=== PATIENT | female | born 1990 | race Caucasian/White ===

== ENCOUNTER 2020-12-21 10:33 | Observation (INO) | payer OTHER, SELFPAY ==
[~2020-12-21] VITALS: Ht 160 cm; Wt 90.7 kg
[~2020-12-21 10:33] MED LIST: OMEP20EC9 PO; PREN-385 PO
[2020-12-21 13:00] VITALS: BP 114/65
[2020-12-21] MEDS ORDERED: BETAMETH ACET/BETAMETH NA PH 30 MG/5 ML VIAL IM SCH ×2 (13:25→13:28)
--- NOTE | 2020-12-22 06:54 | NUR ---
PATIENT HAS BEEN SCREENED AND CATEGORIZED LOW NUTRITION RISK. PATIENT WILL BE SEEN WITHIN 7 DAYS OF ADMISSION. 12/28/20 KATTY MORRIS MS, RDN
[2020-12-22] MEDS ORDERED: BETAMETH ACET/BETAMETH NA PH 30 MG/5 ML VIAL IM ONE (13:10)
== END 2020-12-22 14:00 | disposition home or self-care (01) ==
LOC: MLD 10:33
PROVIDERS: ADMIT Obstetrics & Gynecology; ATTEND Obstetrics & Gynecology
DX: O46.93 Antepartum hemorrhage, unspecified, third trimester (principal); Z20.822 Contact with and (suspected) exposure to COVID-19; Z3A.34 34 weeks gestation of pregnancy
CPT/HCPCS: 59025; 76805; 76817; 81000; 87426; 96372; G0378; J0702; Q0092

== ENCOUNTER 2021-01-10 09:01 | Inpatient (IN) | payer OTHER, SELFPAY ==
[~2021-01-10] VITALS: Ht 160 cm; Wt 91.2 kg
[2021-01-10] MEDS ORDERED: LACTATED RINGERS 1,000 ML IV SCH (09:45)
[2021-01-10] MEDS ORDERED: CITRIC ACID/SODIUM CITRATE 30 ML UDC PO SCH (09:45)
[2021-01-10] MEDS ORDERED: ONDANSETRON 4 MG/2 ML VIAL IVP PRN ×2 (09:55→12:05)
[2021-01-10] MEDS ORDERED: MORPHINE SULFATE 10 MG/ML VIAL IVP PRN (10:05)
[2021-01-10 10:31] LABS: BILIRUBIN,URINE NEGATIVE (NEGATIVE); BLOOD, URINE 3+ (NEGATIVE); COLOR,URINE YELLOW (YELLOW); LEUKOCYTE ESTERASE ,URINE TRACE (NEGATIVE); NITRITE, URINE NEGATIVE (NEGATIVE); UGLUCOSE NEGATIVE (NEGATIVE)
[2021-01-10] MEDS ORDERED: MORPHINE PRES FREE 10 MG/10 ML AMP IV ONE (10:38)
[2021-01-10] MEDS ORDERED: MIDAZOLAM 2 MG/2 ML VIAL ONE (10:38)
[2021-01-10 10:41] LABS: APPEARANCE,URINE HAZY (CLEAR)
[2021-01-10 10:43] LABS: WBC,URINE 0-5 /HPF (0-5)
[2021-01-10 10:45] LABS: RBC,URINE 50-80 /HPF (0-5)
[2021-01-10 10:49] LABS: ALBUMIN 2.2 g/dL (3.4-5.0); ANION GAP 15.6 (8-16); CARBON DIOXIDE 21.2 mmol/L (21-32); CREATININE 0.6 mg/dL (0.6-1.3); POTASSIUM 3.8 mmol/L (3.5-5.1); TOTAL BILIRUBIN 0.2 mg/dL (0.0-1.0)
[2021-01-10 10:52] LABS: BASOPHILS # (AUTO) 0.1 K/uL (0.00-0.22); BASOPHILS % (AUTO) 0.6 % (0.0-2.0); EOSINOPHILS % (AUTO) 0.4 % (0.0-4.0); HEMATOCRIT 40.2 % (36-48); HEMOGLOBIN 13.5 g/dL (12.0-16.0); LYMPHOCYTES # (AUTO) 1.8 K/uL (2.5-16.5); LYMPHOCYTES % (AUTO) 20.5 % (20.5-51.1); MEAN CORPUSCULAR HEMOGLOBIN 30 pg (27-31); MEAN CORPUSCULAR HGB CONC 34 g/dL (33-37); MEAN CORPUSCULAR VOLUME 88.7 fL (80-94); MONOCYTES # (AUTO) 0.4 K/uL (0.8-1.0); MONOCYTES % (AUTO) 4.7 % (1.7-9.3); NEUTROPHILS # (AUTO) 6.5 K/uL (1.8-7.7); NEUTROPHILS % (AUTO) 73.8 % (42.2-75.2); PLATELET COUNT (AUTO) 245 K/uL (140-450); RED BLOOD CELL COUNT(AUTO) 4.53 MIL/uL (4.20-5.40); WHITE BLOOD COUNT (AUTO) 8.8 K/uL (4.8-10.8)
[2021-01-10 11:01] VITALS: BP 125/74
[2021-01-10] MEDS ORDERED: METOCLOPRAMIDE 10 MG/2 ML INJ VIAL ONE (11:30)
[2021-01-10] MEDS ORDERED: diphenhydrAMINE 50 MG/ML VIAL IVP PRN (12:05)
[2021-01-10] MEDS ORDERED: OXYTOCIN 20 UNITS in LACTATED RINGERS 1,000 ML IV SCH (12:05)
[2021-01-10] MEDS ORDERED: NALOXONE 0.4 MG/ML VIAL IVP PRN ×3 (12:05)
[2021-01-10] MEDS ORDERED: NALBUPHINE 10 MG/ML AMP IVP PRN (12:05)
[2021-01-10] MEDS ORDERED: HYDROmorphone 1 MG/ML AMP IVP PRN (12:05)
[2021-01-10] MEDS ORDERED: MEPERIDINE 25 MG/ML SYR IVP PRN (12:05)
[2021-01-10] MEDS ORDERED: MEASLES, MUMPS, AND RUBELLA 1 VIAL SQVAC ONE (13:15)
[2021-01-10] MEDS ORDERED: PROMETHAZINE 25 MG/ML VIAL IVP PRN (13:15)
[2021-01-10] MEDS ORDERED: METHYLERGONOVINE 0.2 MG/ML AMP IM PRN (13:15)
[2021-01-10] MEDS: ONDANSETRON 4 MG/2 ML VIAL IVP PRN ×2 (16:15→20:32)
[2021-01-10] MEDS: OXYTOCIN 20 UNITS in LACTATED RINGERS 1,000 ML IV SCH (16:16)
[2021-01-10] MEDS: KETOROLAC 30 MG/ML VIAL IM/IVP SCH (19:36)
[2021-01-10] MEDS: diphenhydrAMINE 50 MG/ML VIAL IVP PRN (19:39)
[2021-01-11] MEDS: diphenhydrAMINE 50 MG/ML VIAL IVP PRN (00:12)
[2021-01-11] MEDS ORDERED: OXYTOCIN 20 UNITS/LR PREMIX 1,000 ML IV ONE (00:23)
[2021-01-11] MEDS: OXYTOCIN 20 UNITS in LACTATED RINGERS 1,000 ML IV SCH (00:43)
[2021-01-11] MEDS: KETOROLAC 30 MG/ML VIAL IM/IVP SCH (01:37)
[2021-01-11 05:27] LABS: BASOPHILS % (AUTO) 0.4 % (0.0-2.0); EOSINOPHILS % (AUTO) 0.5 % (0.0-4.0); HEMATOCRIT 29.6 % (36-48); LYMPHOCYTES # (AUTO) 1.8 K/uL (2.5-16.5); MEAN CORPUSCULAR HEMOGLOBIN 30 pg (27-31); MEAN CORPUSCULAR HGB CONC 34 g/dL (33-37); MEAN CORPUSCULAR VOLUME 88.7 fL (80-94); MONOCYTES # (AUTO) 0.4 K/uL (0.8-1.0); MONOCYTES % (AUTO) 4.8 % (1.7-9.3); NEUTROPHILS # (AUTO) 5.7 K/uL (1.8-7.7); NEUTROPHILS % (AUTO) 71.3 % (42.2-75.2); PLATELET COUNT (AUTO) 190 K/uL (140-450); RED BLOOD CELL COUNT(AUTO) 3.33 MIL/uL (4.20-5.40); RED CELL DISTRIBUTION WIDTH 16.8 % (11.6-13.7)
[2021-01-11] MEDS ORDERED: bisacodyL 10 MG SUPP RC SCH (09:00)
--- NOTE | 2021-01-11 09:27 | NUR ---
PATIENT HAS BEEN SCREENED AND CATEGORIZED LOW NUTRITION RISK. PATIENT WILL BE SEEN WITHIN 7 DAYS OF ADMISSION. 01/16/21 REVIEWED BY DANNY MCWILLIAMS RD
[2021-01-11] MEDS: oxyCODONE/APAP 5/325 MG 1 TAB TAB PO PRN ×2 (14:48→20:57)
[2021-01-11] MEDS ORDERED: FLU VACCINE QS2021-22 0.5 ML SYR IMVAC ONE ×2 (22:00→22:06)
[2021-01-12] MEDS: SIMETHICONE 80 MG TAB.CHEW PO PRN ×3 (00:30→12:26)
[2021-01-12] MEDS: oxyCODONE/APAP 5/325 MG 1 TAB TAB PO PRN ×2 (06:48→12:26)
== END 2021-01-12 17:20 | disposition home or self-care (01) | DRG 783 ==
LOC: MLD 09:01 → OBSVTOIN 09:10 → MFCC 13:22
PROVIDERS: ADMIT Obstetrics & Gynecology; ATTEND Obstetrics & Gynecology
PROC: 10D00Z1 Extraction of Products of Conception, Low, Open Approach (ICD-10-PCS; principal; 2021-01-10)
PROC: 0UB70ZZ Excision of Bilateral Fallopian Tubes, Open Approach (ICD-10-PCS; 2021-01-10)
DX: O36.5930 Maternal care for other known or suspected poor fetal growth, third trimester, not applicable or unspecified (principal); O45.93 Premature separation of placenta, unspecified, third trimester; Z20.822 Contact with and (suspected) exposure to COVID-19; O34.211 Maternal care for low transverse scar from previous cesarean delivery; Z3A.37 37 weeks gestation of pregnancy; Z37.0 Single live birth; Z88.1 Allergy status to other antibiotic agents; Z30.2 Encounter for sterilization
CPT/HCPCS: 36415; 80053; 81001; 85025; 86592; 86886; 86900; 86901; 87653-90; 88302; 90715; G0378; J0690; J1200; J1885; J2250; J2270; J2405; J2590; J2765; J7060; J7120